=== PATIENT | male | born 1945 | race Caucasian/White ===

== ENCOUNTER 2017-01-07 19:47 | Emergency (ER) | payer OTHER | END 2017-01-07 22:34 | disposition critical access hospital (66) | LOC: ER 19:47 | DX: E11.65 Type 2 diabetes mellitus with hyperglycemia (principal); N28.9 Disorder of kidney and ureter, unspecified; K21.9 Gastro-esophageal reflux disease without esophagitis; I10 Essential (primary) hypertension; Z90.49 Acquired absence of other specified parts of digestive tract; Z79.899 Other long term (current) drug therapy | CPT/HCPCS: 36415; 96361; 96374 ==

== ENCOUNTER 2017-01-07 19:47 | Inpatient (IN) | payer OTHER ==
[~2017-01-07] VITALS: Ht 182.9 cm; Wt 117.9 kg
== END 2017-01-09 14:30 | disposition home or self-care (01) | DRG 638 ==
LOC: ER 19:47 → ICU 22:35 → MED 22:35 → ICU 01-08 11:48 → MED 01-08 21:46
PROVIDERS: ADMIT Internal Medicine
DX: E13.10 Other specified diabetes mellitus with ketoacidosis without coma (principal); N17.9 Acute kidney failure, unspecified; E87.1 Hypo-osmolality and hyponatremia; I10 Essential (primary) hypertension; E83.42 Hypomagnesemia; K21.9 Gastro-esophageal reflux disease without esophagitis; N40.0 Benign prostatic hyperplasia without lower urinary tract symptoms; M10.9 Gout, unspecified; Z79.899 Other long term (current) drug therapy; Z90.49 Acquired absence of other specified parts of digestive tract; Z80.9 Family history of malignant neoplasm, unspecified
CPT/HCPCS: 36415; 97162-GP; 97165; J1650